=== PATIENT | female | born 1960 | race Caucasian/White ===

== ENCOUNTER 2017-02-15 15:30 | Inpatient (IN) ==
[2017-02-15] MEDS ORDERED: ASPIRIN PO STA (15:40)
[2017-02-15] MEDS ORDERED: ASPIRIN ONE (15:41)
--- NOTE | 2017-02-15 16:07 | Diag Imaging Result Doc PS360 ---
CHEST-2 VIEWS - 02/15/2017 INDICATION: CP TECHNIQUE: COMPARISON: 05/20/2015 FINDINGS: The lungs are normally expanded and clear. Heart size and mediastinal contours are normal. No pneumothorax or pleural effusion. IMPRESSION: Negative exam. Electronically signed by Darryl Rodriguez 02/15/2017 4:05 PM
[2017-02-15 16:39] LABS: MANUAL DIFF NEEDED? NO
[2017-02-15 16:44] LABS: BASO% 0.5 % (0.0-0.8); EOS# 0.39 X1000 (0.0-0.7); EOS% 4.4 % (0.0-10.0); HEMATOCRIT 35.3 % (37.0-47.0); HEMOGLOBIN 11.4 g/dL (12.0-16.0); IMM GRAN# 0.02 X1000 (0.0-0.04); IMM GRAN% 0.2 % (0.0-0.5); LYMPH# 1.34 X1000 (1.2-3.4); LYMPH% 15.2 % (20.5-51.1); MCH 28.4 PG (27-31); MCHC 32.3 g/dL (33-37); MONO# 0.55 X1000 (0.11-0.59); MONO% 6.2 % (1.7-9.3); MPV 9.9 FL (7.4-10.4); NEUT% 73.5 % (42.2-75.2); PLT 304 X1000 (130-400); RBC 4.01 XMIL (4.2-5.4)
[2017-02-15 16:55] LABS: INR 0.96; PTT 29.9 Seconds (22.0-36.0)
[2017-02-15 17:11] LABS: ALBUMIN 3.8 g/dL (3.5-5.0); CALCIUM 9.8 mg/dL (8.8-10.2); MAGNESIUM 1.5 mg/dL (1.5-2.7); TOTAL BILIRUBIN 0.18 mg/dL (0.20-1.00); TOTAL PROTEIN 7.2 g/dL (6.3-8.3)
--- NOTE | 2017-02-15 18:39 | PROVIDER DOCUMENTATION ---
This chart was entered by Alex Lazo Scribe, acting as scribe for Gualberto Sheikh MD. HPI-Cardiac General - General Chief Complaint: Chest Pain Stated Complaint: SOB,LOWER RT SIDE PAIN Time Seen by Provider: 02/15/17 18:07 Source: patient Allergies/Adverse Reactions: Patient Allergies Allergy/AdvReac Type Severity Reaction Status Date / Time No Known Allergies Allergy Verified 05/20/15 14:36 Home Medications: Home Medication List Medication Instructions Recorded Confirmed Last Taken Type Aspirin 81 mg PO DAILY 04/05/15 05/20/15 02/15/17 History Insulin Aspart Prot/Insuln Asp 25 unit SQ BID 04/05/15 05/20/15 02/15/17 History [Novolog Mix 70-30 Flexpen Syrn] Amitriptyline [Elavil] 25 mg PO BID 05/20/15 05/20/15 02/15/17 History Calcium Citrate/Vitamin D 1 each PO DAILY 05/20/15 05/20/15 02/15/17 History [Citracal + D] ENALApril [Vasotec] 10 mg PO HS 05/20/15 05/20/15 02/15/17 History Ketorolac [Toradol] 10 mg PO 4XDAY PRN PRN #30 tablet 05/20/15 02/15/17 Rx Metoprolol [Lopressor] 25 mg PO BID 05/20/15 05/20/15 02/15/17 History SIMVAstatin [Zocor] 40 mg PO QHS 05/20/15 05/20/15 02/14/17 History - History of Present Illness-Cardiac Nature of Presenting Problem: Pt is a 56 yowf who presents to ER with CC of right sided chest tightness that radiated to her neck, but not her arm. Pt also reports that she had mild right sided abdominal pain. Pt was at work when sxs started (time 1115), became diaphoretic, left work at 1500 to ER. Pt reports that she did take a baby aspirin earlier today, but vomited it up while in the waiting room (2 emesis episodes). Pt was also short of breath, reports hx of MIs in the past, and 2 cardiac stents, but reports that this pain did not feel like her past MIs. Location: reports: other (right sided chest tightness) Quality of Pain: reports: tightness Severity in ED: mild Onset/Duration: 4-6 hours ago Timing: improving, gone now Context/Activities at Onset: reports: light activity Palpitation Quality: N/A History of arrythmia: reports: none Aspirin Treatment Today: reports: provided by ED Prior Chest Pain/Cardiac Workup: reports: cardiac cath, heart attack, other ([place]) Associated Symptoms: reports: abdominal pain, diaphoresis, nausea, shortness of breath, vomiting. denies: back pain, dizziness, edema, fatigue, fever/chills, headache, heartburn, rash, swelling/lump in chest, syncope, weakness Similar Symptoms Previously?: No Recently Seen Here or By Another Healthcare Provider: No Review of Systems - Adult - REVIEW OF SYSTEMS - ADULT Constitutional: denies: chills, fever, fatique, night sweats, weight gain, weight loss Eyes: reports: no symptoms reported Ears, Nose, Mouth & Throat: reports: no symptoms reported Cardiovascular: reports: chest pain (with diaphoresis). denies: edema, heart murmur, irregular heart rate, orthopnea, palpitations, poor circulation, PND, syncope Respiratory: reports: shortness of breath. denies: chronic cough, cough, dyspnea on exertion, excessive sputum production, hemoptysis, pleurisy, wheezing Gastrointestinal: reports: abdominal pain, nausea, vomiting. denies: hematemesis, constipation, diarrhea, difficulty swallowing, frequent heartburn, poor appetite, rectal bleeding Genitourinary: reports: no symptoms reported Musculoskeletal: reports: no symptoms reported Integumentary: reports: no symptoms reported Neurological: reports: no symptoms reported Psychiatric: reports: no symptoms reported Endocrine: reports: no symptoms reported Hematologic/Lymphatic: reports: no symptoms reported Allergic/Immunologic: reports: no symptoms reported All Other Systems: Reviewed and Negative Past History - Adult - PAST MEDICAL HISTORY-ADULT Review of Records: reports: Nursing Assessment Review, Medications Reviewed Gastrointestinal: reports: denies history - IMMUNIZATION STATUS Childhood Immunizations: See Nurse Assessment Flu Vaccine: See Nurse Assessment - FAMILY HISTORY Family History: reviewed, not pertinent Physical Exam-General - PHYSICAL EXAM-ADULT Initial Vital Signs Reviewed: Yes - CONSTITUTIONAL General Appearance: appears well, alert, no apparent distress - EYES Eyes: PERRL/EOMI, pink conjunctivae - HEAD, EARS, NOSE, MOUTH & THROAT HENMT: normocephalic/atraumatic, moist mucous membranes, normal ENT inspection, TMs normal, pharynx normal. negative: pharyngeal erythema - NECK Neck: non-tender, full range of motion, supple, normal inspection. negative: C- spine tenderness, limited range of motion, lymphadenopathy - RESPIRATORY Respiratory: chest non-tender, lungs clear, normal breath sounds, no pleuratic chest pain, no respiratory distress, no accessory muscle use. negative: respiratory distress, decreased breath sounds, accessory muscle use, wheezing - CARDIOVASCULAR Cardiovascular: normal peripheral pulses, regular rate, rhythm. negative: bradycardia, tachycardia, irregularly irregular - GASTROINTESTINAL (ABDOMEN) Abdominal Exam: normal bowel sounds, non tender, soft, no organomegaly, no pulsatile mass. negative: guarding, rebound, tenderness - LYMPHATIC Lymphatic: no adenopathy - MUSCULOSKELETAL Back Exam: normal inspection, no CVA tenderness, no vertebral tenderness Extremity: normal range of motion, non-tender, normal gait, normal inspection, no pedal edema, no calf tenderness, normal capillary refill. negative: deformity, erythema, inflammation, swelling, tenderness - SKIN Integumentary: normal color, normal turgor, warm/dry. 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 negative: facial droop, focal weakness, motor weakness, sensory deficit - PSYCHIATRIC Psych/Mental Status: normal mood/affect, normal thought content, normal thought process, oriented x 3 Progress - PLAN OF CARE/RESULTS Progress/Plan/Lab Results: Vital Signs - 8 hr 02/15/17 15:35 Temperature 98.2 F Pulse Rate 109 H Respiratory Rate 22 Blood Pressure 141/85 O2 Sat by Pulse Oximetry 97 Laboratory Results - last 24 hr 02/15/17 02/15/17 02/15/17 15:43 15:43 15:43 WBC 8.81 RBC 4.01 L Hgb 11.4 L Hct 35.3 L MCV 88.0 MCH 28.4 MCHC 32.3 L RDW Std Deviation 13.3 Plt Count 304 MPV 9.9 Immature Gran % (Auto) 0.2 Neut % (Auto) 73.5 Lymph % (Auto) 15.2 L [place] % (Auto) 6.2 Eos % (Auto) 4.4 Baso % (Auto) 0.5 Immature Gran # (Auto) 0.02 Neut # (Auto) 6.47 Lymph # (Auto) 1.34 [place] # (Auto) 0.55 Eos # (Auto) 0.39 Baso # (Auto) 0.04 PT INR PTT (Actin FS) D-Dimer 0.43 Sodium 141 Potassium 4.0 Chloride 102 Carbon Dioxide 23 L Anion Gap 16 BUN 24 H Creatinine 1.2 H Estimated GFR/1.73 m2 46 BUN/Creatinine Ratio 20 Glucose 168 H Calculated Osmolality 289 Calcium 9.8 Magnesium 1.5 Total Bilirubin 0.18 L AST 15 ALT 18 Alkaline Phosphatase 84 Creatine Kinase 143 Troponin T Trt-Y-Ikyzteaepgo Pept Total Protein 7.2 Albumin 3.8 Globulin 3.4 Albumin/Globulin Ratio 1.1 02/15/17 02/15/17 02/15/17 15:43 15:43 15:43 WBC RBC Hgb Hct MCV MCH MCHC RDW Std Deviation Plt Count MPV Immature Gran % (Auto) Neut % (Auto) Lymph % (Auto) [place] % (Auto) Eos % (Auto) Baso % (Auto) Immature Gran # (Auto) Neut # (Auto) Lymph # (Auto) [place] # (Auto) Eos # (Auto) Baso # (Auto) PT 10.0 INR 0.96 PTT (Actin FS) 29.9 D-Dimer Sodium Potassium Chloride Carbon Dioxide Anion Gap BUN Creatinine Estimated GFR/1.73 m2 BUN/Creatinine Ratio Glucose Calculated Osmolality Calcium Magnesium Total Bilirubin AST ALT Alkaline Phosphatase Creatine Kinase Troponin T < 0.010 Khd-M-Ungwtjendsf Pept 265 H Total Protein Albumin Globulin Albumin/Globulin Ratio 02/15/17 18:07 WBC RBC Hgb Hct MCV MCH MCHC RDW Std Deviation Plt Count MPV Immature Gran % (Auto) Neut % (Auto) Lymph % (Auto) [place] % (Auto) Eos % (Auto) Baso % (Auto) Immature Gran # (Auto) Neut # (Auto) Lymph # (Auto) [place] # (Auto) Eos # (Auto) Baso # (Auto) PT INR PTT (Actin FS) D-Dimer Sodium Potassium Chloride Carbon Dioxide Anion Gap BUN Creatinine Estimated GFR/1.73 m2 BUN/Creatinine Ratio Glucose Calculated Osmolality Calcium Magnesium Total Bilirubin AST ALT Alkaline Phosphatase Creatine Kinase Troponin T < 0.010 Hor-L-Aimpevemxuh Pept Total Protein Albumin Globulin Albumin/Globulin Ratio Orders Category Date Time Status CHEST-2 VIEWS [RAD] Stat Exams 02/15/17 15:40 Completed CBC WITH ELECTRONIC DIFF [HEME] Stat Lab 02/15/17 15:43 Completed CK PROFILE [SP CHEM] Stat Lab 02/15/17 15:43 Completed CK PROFILE [SP CHEM] Stat Lab 02/15/17 18:07 Received COMPREHENSIVE METABOLIC PANEL [CHEM] Stat Lab 02/15/17 15:43 Completed D-DIMER [CHEM] Stat Lab 02/15/17 15:43 Completed MAGNESIUM [CHEM] Stat Lab 02/15/17 15:43 Completed PRO B-NATRIURETIC PEPTIDE Stat Lab 02/15/17 15:43 Completed PROTIME WITH INR [COAG] Stat Lab 02/15/17 15:43 Completed PTT [COAG] Stat Lab 02/15/17 15:43 Completed TROPONIN T Stat Lab 02/15/17 15:43 Completed TROPONIN T Stat Lab 02/15/17 18:07 Completed Aspirin Med 02/15/17 15:41 Discontinued 325 mg .ROUTE .STK-MED ONE Aspirin Med 02/15/17 15:40 Discontinued 325 mg PO STAT STA EKG [EKG] Stat Ther 02/15/17 15:40 Ordered EKG [EKG] Stat Ther 02/15/17 18:10 Ordered Result Diagrams: 02/15/17 15:43 02/15/17 15:43 - XRAY 1 XRAY: Bilateral XRAY Study: Chest Impression: See EMR Report XRAY Interpretation: Negative - Dr. Rodriguez (Radiologist) - CONSULTS/PCP/HOSPITALIST Notification #1 *Consult/PCP/Hospitalist*: Dr. Murphy's [facility]MIST Time Discussed: 18:23 Reason/Comments: admit Departure - Departure Time of Disposition Decision: 18:35 DIAGNOSIS: Chest pain Qualifiers: Chest pain type: unspecified Qualified Code(s): R07.9 - Chest pain, unspecified Disposition: ADMITTED INPATIENT 09 Certified Medical Emergency: Emergent Condition: Stable Referrals and Follow-Ups: Marycarmen Patricia [Primary Care Provider] - - Critical Care Note This patient required my direct & personal management of CC.: No This chart was documented by the indicated scribe, (Alex Lazo Scribe) and accurately reflects the services I performed and decisions made by me, Gualberto Sheikh MD, as attested by the provider's signature.
--- NOTE | 2017-02-15 20:19 | HISTORY AND PHYSICAL ---
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 Actually, it is in the midsternum, she said, radiating more to the right arm. Did not radiate into her neck. PAST MEDICAL HISTORY: She has a history of coronary artery disease and she has had 2 stents placed in the past. She has a history of diabetes mellitus type 2 and hypertension. PAST SURGICAL HISTORY: She has had multiple surgeries includin. Inguinal hernia repair. 2. Cholecystectomy. 3. She had a hysterectomy. A tumor was removed. 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 4. Right toe debridement diabetic ulcer. 5. Two cardiac stents. FAMILY HISTORY: Mother with lupus. Father of lung cancer. SOCIAL HISTORY: Negative for alcohol, tobacco. No illicit drugs. She lives with her and son in [place], [place]. ALLERGIES: No known drug allergies. REVIEW OF SYSTEMS: She stated this pain lasted a couple hours and it was pretty intense and it did finally resolve. She was sorting clothes at the time, but does not feel this was musculoskeletal, although she said it is possible. Review of symptoms did not report any fever or chills. No weight loss.HEENT: Unremarkable. Respiratory: No increased work of breathing or dyspnea. Cardiovascular: No chest pain or tachy palpitation. GI: Unremarkable. : Unremarkable. Musculoskeletal/Neurologic: No significant history. PHYSICAL EXAMINATION: VITAL SIGNS: Temperature 98.2 degrees, pulse 109, respirations 22, blood pressure 141/85. Weight 164 pounds. O2 saturation 97%. HEENT: Pupils were equal and round. LUNGS: Clear in all lung garcia. CARDIOVASCULAR: Regular rate without murmur or S3. ABDOMEN: Soft. SKIN: Warm and dry. LABORATORY DATA: White count 8810, hematocrit 35, platelet count 304,000. Sodium 141, potassium 4.0, chloride 102, bicarb 23, BUN 24, creatinine 1.2. Liver functions unremarkable. Albumin 3.8. ProTime 10, PTT is 29. Chest x-ray negative exam. EKG normal sinus rhythm, normal axis. No ST- segment deviation. ASSESSMENT AND PLAN: 1. Atypical chest pain with known coronary artery disease. This does not sound like cardiac ischemia, but there is no way to rule it out. It is pressure and does radiate to her right arm and she has known coronary artery disease, so we will put her into observation and check serial cardiac enzymes, CPK and troponin. Check serial EKGs. Ask Cardiology to render opinion in the morning. If the enzymes are negative and EKG is negative, we could let her go home and set her up for a GXT as an outpatient. If, however, enzymes bump up and EKG shows ischemic changes, we will change her to an admit and will need more aggressive workup. 2. Diabetes mellitus type 2. We will check pattern sugars. 3. Hypertension. Aware. We will follow her blood pressure. HOME MEDICATIONS: 1. Elavil 25 mg b.i.d. 2. Aspirin 81 mg a day. 3. Calcium citrate with vitamin D 1 daily. 4. Vasotec 10 mg at bedtime. 5. NovoLog 70/30 25 units b.i.d. 6. Ketoralac or Toradol 10 mg p.o. 4 times a day p.r.n. 7. Lopressor 25 mg b.i.d. 8. Simvastatin, which is Zocor, 40 mg at bedtime. cc: Naresh Fleming MD
[2017-02-15] MEDS ORDERED: SODIUM CHLORIDE 0.9% INJ SCH (20:42)
[2017-02-15] MEDS ORDERED: ZOFRAN IV PRN (20:42)
[2017-02-15] MEDS ORDERED: NITROGLYCERIN SL PRN (20:42)
[2017-02-15] MEDS ORDERED: TYLENOL PO PRN (20:42)
[2017-02-15] MEDS: HUMULIN R SUBQ SCH (22:50)
[2017-02-16] MEDS: PROTONIX IV SCH ×2 (02:01→10:06)
[2017-02-16 04:46] LABS: MANUAL DIFF NEEDED? NO
[2017-02-16 04:54] LABS: BASO% 0.6 % (0.0-0.8); EOS% 4.5 % (0.0-10.0); HEMATOCRIT 34.3 % (37.0-47.0); LYMPH# 1.73 X1000 (1.2-3.4); LYMPH% 26.1 % (20.5-51.1); MCH 28.2 PG (27-31); MCHC 32.1 g/dL (33-37); MCV 87.9 FL (81-99); MONO# 0.57 X1000 (0.11-0.59); MONO% 8.6 % (1.7-9.3); MPV 9.4 FL (7.4-10.4); NEUT% 60.2 % (42.2-75.2); PLT 289 X1000 (130-400)
[2017-02-16 04:58] LABS: INR 0.96; PTT 31.6 Seconds (22.0-36.0)
[2017-02-16 05:10] LABS: HEMOGLOBIN A1C 7.8 % (4.8-6.0)
[2017-02-16 05:18] LABS: AGAP 12; ALBUMIN 3.4 g/dL (3.5-5.0); ALKALINE PHOSPHATASE 82 U/L (32-104); BUN 22 mg/dL (8-22); CALCIUM 9.2 mg/dL (8.8-10.2); CHLORIDE 104 mmol/L (98-107); COSMO 288; GOT 12 U/L (10-30); GPT 15 U/L (10-36); MAGNESIUM 1.6 mg/dL (1.5-2.7); POTASSIUM 4.1 mmol/L (3.5-5.1); SODIUM 141 mmol/L (136-145); TCO2 25 mmol/L (25-35); TOTAL BILIRUBIN 0.22 mg/dL (0.20-1.00); TOTAL PROTEIN 6.1 g/dL (6.3-8.3)
[2017-02-16 05:52] LABS: FREE T4 1.04 ng/dL (0.93-1.70)
[2017-02-16] MEDS ORDERED: PRILOSEC PO SCH (07:00)
[2017-02-16] MEDS: HUMULIN R SUBQ SCH ×2 (07:42→12:09)
[2017-02-16] MEDS ORDERED: LOVENOX SUBQ SCH (08:00)
[2017-02-16] MEDS ORDERED: ASPIRIN PO SCH (09:00)
[2017-02-16 12:32] VITALS: BP 155/90
--- NOTE | 2017-02-16 15:28 | DISCHARGE SUMMARY ---
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 Presented on 02/15/2017 after she started noticing shortness of breath, pressure type pain in her right side of her chest. She could not tell whether it could be musculoskeletal. She was working I think clothing with using her right arm. The pain seemed to last for a while. She also had some pain radiating to the right arm and this seemed to resolve. Her EKG and troponin, CPK were unremarkable. Chest pain went away. No further trouble. PAST MEDICAL HISTORY: She does have a significant history coronary artery disease and she has had 2 stents placed by her report. She has history of diabetes mellitus type 2 and hypertension. She has had inguinal hernia repair, cholecystectomy, she has had a hysterectomy, tumor removed she said was 12 pound tumor, they removed her appendix at that time, right toe debridement for diabetic ulcer, she has had 2 cardiac stents. No further pain, is requesting go home. 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 cc: Naresh Fleming MD
--- NOTE | 2017-02-17 07:07 | EKG Report ---
Test Performed on : 02/16/2017 06:46:52 AM Test Reason : chest pain Blood Pressure : / mmHG Vent. Rate : 086 BPM Atrial Rate : 086 BPM P-R Int : 126 ms QRS Dur : 078 ms QT Int : 358 ms P-R-T Axes : -09 -31 035 degrees QTc Int : 428 ms Normal sinus rhythm. Left axis deviation Moderate voltage criteria for LVH, may be normal variant Abnormal ECG When compared with ECG of 15-FEB-2017 18:26, (Unconfirmed) No significant change was found Unconfirmed Result
--- NOTE | 2017-02-17 07:53 | EKG Report ---
Test Performed on : 02/15/2017 3:39:16 PM Test Reason : Order Cancelled Blood Pressure : / mmHG Vent. Rate : 109 BPM Atrial Rate : 109 BPM P-R Int : 134 ms QRS Dur : 068 ms QT Int : 328 ms P-R-T Axes : 049 -21 038 degrees QTc Int : 441 ms Sinus tachycardia. Possible Left atrial enlargement Left ventricular hypertrophy Abnormal ECG When compared with ECG of 16-DEC-2012 17:27, ST no longer elevated in Inferior leads T wave inversion no longer evident in Lateral leads Unconfirmed Result
== END 2017-02-16 16:57 | disposition home or self-care (01) ==
LOC: ED 15:30 → SUATTDRO 20:08 → 3N 20:08 → EDIPHOLD 20:09 → 3N 20:11
PROVIDERS: ATTEND Emergency Medicine